=== PATIENT | female | born 1945 | race Caucasian/White ===

== ENCOUNTER 2020-05-15 14:33 | Inpatient (IN) ==
[2020-05-15] MEDS ORDERED: Dexamethasone 4 MG/ML VIAL IVP ONE (14:40)
[2020-05-15 14:59] LABS: Basophils % 0.6 %; Eosinophils % 0.7 %; Hematocrit 27.2 % (35.3-44.9); Hemoglobin 7.9 g/dL (11.5-15.4); Immature Granulocytes % 0.7 % (0-4); Lymphocytes # 1.3 K/mcL (0.6-4.6); Lymphocytes % 23.6 %; Mean Corpuscular Hemoglobin 22.5 pg (28.0-33.3); Mean Corpuscular Volume 77.5 fL (83.0-100.0); Mean Platelet Volume 10.9 fL (9.4-12.4); Monocytes # 0.4 K/mcL (0.0-1.3); Monocytes % 7.1 %; Neutrophils # 3.6 K/mcL (1.6-8.9); Platelet Count 202 K/mcL (140-400); Red Blood Count 3.51 M/mcL (3.82-4.97); Red Cell Distribution Width 20.3 % (11.5-14.5); Segmented Neutrophils % 67.3 %; White Blood Count 5.3 K/mcL (4.3-11.1)
[2020-05-15 15:07] LABS: INR 1.1; Prothrombin Time 13.1 Seconds (9.4-12.1)
[2020-05-15 15:10] LABS: Bilirubin,Urine Negative (Negative); Blood,Urine Trace-lysed (Negative); Clarity,Urine Clear (Clear); Color,Urine Yellow (Yellow); Glucose,Urine (UA) Normal (Normal); Ketones,Urine Trace mg/dL (Negative); Leukocyte Esterase,Urine Negative (Negative); Nitrite,Urine Negative (Negative); Protein,Urine Trace mg/dL (Neg-Trace); Urobilinogen,Urine Normal (Normal)
[2020-05-15 15:10] LABS: Activated Partial Thrombo Time 28.3 Seconds (26.0-36.0)
[2020-05-15 15:19] LABS: RBC,Urine 0-3 per hpf (0-3); Squamous Epithelial Cell,Urine Few per hpf (None-Few); WBC,Urine 0-3 per hpf (0-3)
[2020-05-15 15:45] LABS: Alanine Aminotransferase 10 Units/L (7-52); Albumin 3.6 g/dL (3.5-5.7); Albumin/Globulin Ratio 1.1 (1.1-2.2); Alkaline Phosphatase 68 Units/L (34-104); Aspartate Amino Transferase 26 Units/L (13-39); BUN/Creatinine Ratio 19 (6-26); Bilirubin,Direct 0.1 mg/dL (0.0-0.2); Bilirubin,Indirect 0.4 mg/dL (0.0-1.0); Bilirubin,Total 0.5 mg/dL (0.3-1.0); Blood Urea Nitrogen 14 mg/dL (8-23); Carbon Dioxide 25 mEq/L (23-29); Chloride 100 mEq/L (98-107); Globulin 3.4 g/dL (2.4-3.5); Glucose 198 mg/dL (70-105); Osmolality,Calculated 284 (280-300); Potassium 4.8 mEq/L (3.5-5.1); Sodium 134 mEq/L (136-145); Troponin I < 0.03 ng/mL (< 0.04); eGFR For African Americans > 60 (> 60); eGFR For Non-African Americans > 60 (> 60)
[2020-05-15] MEDS ORDERED: Ondansetron 4 MG/2 ML VIAL IVP PRN (19:00)
[2020-05-15] MEDS ORDERED: MOM Conc 10 ML UD.LIQ PO PRN (19:00)
[2020-05-15] MEDS ORDERED: Mag Hydrox/Al Hydrox/Simeth 30 ML UDC PO PRN (19:00)
[2020-05-15] MEDS ORDERED: Naloxone 0.4 MG/ML INJ IVP PRN (19:00)
[2020-05-15] MEDS ORDERED: Isovue-370 500 ML BOTTLE IVP ONE (19:12)
[2020-05-15] MEDS ORDERED: *HR* Dextrose 50 % in Water (Vial) 50 ML VIAL IVP PRN (19:14)
[2020-05-15] MEDS ORDERED: D5% in Water 1,000 ML IVC PRN (19:14)
[2020-05-15] MEDS ORDERED: Dextrose Gel 15 GM/37.5 ML TUBE PO PRN ×2 (19:14)
[2020-05-15] MEDS: Pregabalin 75 MG CAPSULE PO SCH (20:29)
[2020-05-15] MEDS: Mirtazapine 15 MG TABLET PO SCH (20:29)
[2020-05-15] MEDS: Azithromycin 500 MG in 0.9 % Sodium Chloride 250 ML IVPB SCH (20:31)
[2020-05-15 20:41] LABS: C-Reactive Protein 48 mg/L (Less than 10)
[2020-05-15] MEDS ORDERED: cefTRIAXone 2,000 MG in 0.9 % Sodium Chloride Mini Bag 100 ML IVPB SCH (20:51)
[2020-05-15 20:59] LABS: Ferritin 28 ng/mL (10-120)
[2020-05-15] MEDS: Insulin LISPRO 300 UNITS/3 ML VIAL SUBQ SCH (21:49)
[2020-05-15] MEDS: Budesonide/Formoterol 160/4.5 1 PUFF INH IH SCH (21:57)
[2020-05-15] MEDS: Acetaminophen 325 MG TABLET PO PRN (22:22)
[2020-05-15] MEDS: *HR* LORazepam 0.5 MG TABLET PO PRN (22:24)
[2020-05-16 06:40] LABS: Hematocrit 26.7 % (35.3-44.9); Hemoglobin 7.8 g/dL (11.5-15.4); Lymphocytes # 0.9 K/mcL (0.6-4.6); Lymphocytes % 21.8 %; Mean Corpuscular HGB Conc 29.2 g/dL (31.6-35.5); Mean Corpuscular Hemoglobin 22.6 pg (28.0-33.3); Mean Corpuscular Volume 77.4 fL (83.0-100.0); Mean Platelet Volume 10.8 fL (9.4-12.4); Monocytes # 0.1 K/mcL (0.0-1.3); Monocytes % 3.4 %; Platelet Count 174 K/mcL (140-400); Red Blood Count 3.45 M/mcL (3.82-4.97); Red Cell Distribution Width 19.8 % (11.5-14.5); Segmented Neutrophils % 73.8 %; White Blood Count 4.1 K/mcL (4.3-11.1)
[2020-05-16 07:03] LABS: BUN/Creatinine Ratio 23 (6-26); Blood Urea Nitrogen 15 mg/dL (8-23); Calcium 8.9 mg/dL (8.6-10.3); Carbon Dioxide 23 mEq/L (23-29); Chloride 99 mEq/L (98-107); Glucose 352 mg/dL (70-105); Osmolality,Calculated 293 (280-300); Potassium 4.5 mEq/L (3.5-5.1); Sodium 134 mEq/L (136-145); eGFR For African Americans > 60 (> 60); eGFR For Non-African Americans > 60 (> 60)
[2020-05-16] MEDS: Insulin LISPRO 300 UNITS/3 ML VIAL SUBQ SCH ×4 (08:00→20:08)
[2020-05-16] MEDS: Pregabalin 75 MG CAPSULE PO SCH ×2 (08:02→20:14)
[2020-05-16] MEDS: Cholecalciferol (D-3) 1,000 UNIT (25MCG) TABLET PO SCH (08:02)
[2020-05-16] MEDS: tiZANidine 4 MG TABLET PO SCH (08:02)
[2020-05-16] MEDS: *HR* Glimepiride 2 MG TABLET PO SCH (08:02)
[2020-05-16] MEDS: Budesonide/Formoterol 160/4.5 1 PUFF INH IH SCH ×2 (08:24→20:28)
[2020-05-16] MEDS ORDERED: Dexamethasone 4 MG/ML VIAL IVP SCH (09:00)
[2020-05-16 09:25] LABS: % Iron Saturation 5 % (15-50); Iron 25 mcg/dL (50-170); Transferrin 326 mg/dL (203-362)
[2020-05-16 12:24] LABS: Estimated Average Glucose 237 mg/dl; Hemoglobin A1C 9.9 %
[2020-05-16] MEDS ORDERED: Insulin LISPRO 300 UNITS/3 ML VIAL SUBQ ONE ×2 (13:24→15:45)
[2020-05-16] MEDS: *HR* LORazepam 0.5 MG TABLET PO PRN ×2 (14:12→22:33)
[2020-05-16] MEDS: *HR* Acetaminophen w/Cod 300-30 mg 1 TAB TABLET PO PRN ×2 (14:12→22:32)
[2020-05-16] MEDS ORDERED: Insulin LISPRO 300 UNITS/3 ML VIAL SUBQ STA (18:30)
[2020-05-16] MEDS: Azithromycin 500 MG in 0.9 % Sodium Chloride 250 ML IVPB SCH (19:46)
[2020-05-16] MEDS: Mirtazapine 15 MG TABLET PO SCH (20:14)
[2020-05-16] MEDS ORDERED: Insulin DETEMIR 100 UNIT/ML per UNIT SUBQ SCH (21:00)
[2020-05-16] MEDS ORDERED: Insulin DETEMIR 100 UNIT/ML X5UNITS SUBQ SCH (21:00)
[2020-05-16] MEDS: cefTRIAXone 2,000 MG in 0.9 % Sodium Chloride Mini Bag 100 ML IVPB SCH (22:37)
[2020-05-17 07:28] LABS: BUN/Creatinine Ratio 28 (6-26); Blood Urea Nitrogen 17 mg/dL (8-23); Calcium 8.5 mg/dL (8.6-10.3); Carbon Dioxide 25 mEq/L (23-29); Chloride 101 mEq/L (98-107); Glucose 332 mg/dL (70-105); Osmolality,Calculated 293 (280-300); Potassium 4.7 mEq/L (3.5-5.1); Sodium 134 mEq/L (136-145); eGFR For African Americans > 60 (> 60); eGFR For Non-African Americans > 60 (> 60)
[2020-05-17 07:33] LABS: Basophils % 0.1 %; Hematocrit 25.2 % (35.3-44.9); Hemoglobin 7.4 g/dL (11.5-15.4); Immature Granulocytes % 0.8 % (0-4); Lymphocytes # 0.8 K/mcL (0.6-4.6); Lymphocytes % 7.8 %; Mean Corpuscular HGB Conc 29.4 g/dL (31.6-35.5); Mean Corpuscular Hemoglobin 22.6 pg (28.0-33.3); Mean Corpuscular Volume 76.8 fL (83.0-100.0); Mean Platelet Volume 11.2 fL (9.4-12.4); Monocytes # 0.6 K/mcL (0.0-1.3); Neutrophils # 8.3 K/mcL (1.6-8.9); Nucleated Red Blood Cells 0.2 /100 WBC (0); Platelet Count 131 K/mcL (140-400); Red Blood Count 3.28 M/mcL (3.82-4.97); Segmented Neutrophils % 85.3 %; White Blood Count 9.7 K/mcL (4.3-11.1)
[2020-05-17] MEDS: Budesonide/Formoterol 160/4.5 1 PUFF INH IH SCH ×2 (07:45→20:48)
[2020-05-17] MEDS ORDERED: Dexamethasone Sodium Phos/PF 10 MG/ML VIAL IVP SCH (09:00)
[2020-05-17] MEDS ORDERED: Insulin DETEMIR 100 UNIT/ML X5UNITS SUBQ SCH (09:00)
[2020-05-17 09:14] LABS: Ferritin 34 ng/mL (10-120)
[2020-05-17] MEDS: Insulin LISPRO 300 UNITS/3 ML VIAL SUBQ SCH ×5 (09:19→20:21)
[2020-05-17] MEDS: Pregabalin 75 MG CAPSULE PO SCH ×2 (09:21→20:23)
[2020-05-17] MEDS: Cholecalciferol (D-3) 1,000 UNIT (25MCG) TABLET PO SCH (09:21)
[2020-05-17] MEDS: *HR* Glimepiride 2 MG TABLET PO SCH (09:21)
[2020-05-17] MEDS: tiZANidine 4 MG TABLET PO SCH (09:21)
[2020-05-17] MEDS: Dexamethasone Sodium Phos/PF 10 MG/ML VIAL IVP SCH (09:22)
[2020-05-17] MEDS: *HR* Acetaminophen w/Cod 300-30 mg 1 TAB TABLET PO PRN ×2 (10:05→20:23)
[2020-05-17] MEDS: *HR* LORazepam 0.5 MG TABLET PO PRN ×2 (10:05→20:23)
[2020-05-17 10:10] LABS: C-Reactive Protein 34 mg/L (Less than 10)
[2020-05-17] MEDS ORDERED: Insulin LISPRO 300 UNITS/3 ML VIAL SUBQ STA (11:40)
[2020-05-17] MEDS: Insulin DETEMIR 100 UNIT/ML X5UNITS SUBQ SCH (20:21)
[2020-05-17] MEDS: Mirtazapine 15 MG TABLET PO SCH (20:24)
[2020-05-17] MEDS: Azithromycin 500 MG in 0.9 % Sodium Chloride 250 ML IVPB SCH (21:38)
[2020-05-17] MEDS: cefTRIAXone 2,000 MG in 0.9 % Sodium Chloride Mini Bag 100 ML IVPB SCH (22:44)
[2020-05-18 06:50] LABS: Hematocrit 24.9 % (35.3-44.9); Hemoglobin 7.3 g/dL (11.5-15.4); Immature Granulocytes % 2.8 % (0-4); Lymphocytes # 0.7 K/mcL (0.6-4.6); Lymphocytes % 7.2 %; Mean Corpuscular HGB Conc 29.3 g/dL (31.6-35.5); Mean Corpuscular Hemoglobin 22.4 pg (28.0-33.3); Mean Corpuscular Volume 76.4 fL (83.0-100.0); Mean Platelet Volume 10.8 fL (9.4-12.4); Monocytes # 0.5 K/mcL (0.0-1.3); Monocytes % 4.8 %; Neutrophils # 8.4 K/mcL (1.6-8.9); Nucleated Red Blood Cells 0.2 /100 WBC (0); Platelet Count 209 K/mcL (140-400); Red Blood Count 3.26 M/mcL (3.82-4.97); Red Cell Distribution Width 20.2 % (11.5-14.5); Segmented Neutrophils % 85.2 %; White Blood Count 9.9 K/mcL (4.3-11.1)
[2020-05-18 08:01] LABS: BUN/Creatinine Ratio 29 (6-26); Blood Urea Nitrogen 18 mg/dL (8-23); Calcium 8.3 mg/dL (8.6-10.3); Carbon Dioxide 24 mEq/L (23-29); Chloride 102 mEq/L (98-107); Glucose 297 mg/dL (70-105); Osmolality,Calculated 291 (280-300); Potassium 4.4 mEq/L (3.5-5.1); Sodium 134 mEq/L (136-145); eGFR For African Americans > 60 (> 60); eGFR For Non-African Americans > 60 (> 60)
[2020-05-18] MEDS: Cholecalciferol (D-3) 1,000 UNIT (25MCG) TABLET PO SCH (08:41)
[2020-05-18] MEDS: *HR* Glimepiride 2 MG TABLET PO SCH (08:42)
[2020-05-18] MEDS: Dexamethasone Sodium Phos/PF 10 MG/ML VIAL IVP SCH (08:42)
[2020-05-18] MEDS: Pregabalin 75 MG CAPSULE PO SCH ×2 (08:42→20:13)
[2020-05-18] MEDS: Acetaminophen 325 MG TABLET PO PRN (08:42)
[2020-05-18] MEDS: tiZANidine 4 MG TABLET PO SCH (08:42)
[2020-05-18] MEDS: *HR* LORazepam 0.5 MG TABLET PO PRN ×2 (08:42→18:30)
[2020-05-18] MEDS: Budesonide/Formoterol 160/4.5 1 PUFF INH IH SCH ×2 (08:42→20:18)
[2020-05-18] MEDS: Insulin DETEMIR 100 UNIT/ML X5UNITS SUBQ SCH ×2 (08:43→20:12)
[2020-05-18] MEDS: Insulin LISPRO 300 UNITS/3 ML VIAL SUBQ SCH ×7 (08:48→20:10)
[2020-05-18] MEDS: *HR* Enoxaparin 40 MG/0.4 ML SYRINGE SQ SCH (14:36)
[2020-05-18] MEDS ORDERED: 0.9 % Sodium Chloride 250 ML IVC SCH (14:45)
[2020-05-18] MEDS: Azithromycin 500 MG in 0.9 % Sodium Chloride 250 ML IVPB SCH (20:09)
[2020-05-18] MEDS: Mirtazapine 15 MG TABLET PO SCH (20:13)
[2020-05-18] MEDS: cefTRIAXone 2,000 MG in 0.9 % Sodium Chloride Mini Bag 100 ML IVPB SCH (21:15)
[2020-05-18] MEDS: *HR* Acetaminophen w/Cod 300-30 mg 1 TAB TABLET PO PRN (21:16)
[2020-05-19] MEDS: *HR* Enoxaparin 40 MG/0.4 ML SYRINGE SQ SCH (06:21)
[2020-05-19 06:30] LABS: Basophils % 0.1 %; Hematocrit 27.2 % (35.3-44.9); Hemoglobin 8.1 g/dL (11.5-15.4); Immature Granulocytes % 5.3 % (0-4); Lymphocytes # 0.9 K/mcL (0.6-4.6); Lymphocytes % 10.5 %; Mean Corpuscular HGB Conc 29.8 g/dL (31.6-35.5); Mean Corpuscular Hemoglobin 23.3 pg (28.0-33.3); Mean Corpuscular Volume 78.2 fL (83.0-100.0); Mean Platelet Volume 10.7 fL (9.4-12.4); Monocytes # 0.6 K/mcL (0.0-1.3); Monocytes % 6.4 %; Neutrophils # 6.9 K/mcL (1.6-8.9); Nucleated Red Blood Cells 0.5 /100 WBC (0); Platelet Count 204 K/mcL (140-400); Red Blood Count 3.48 M/mcL (3.82-4.97); Red Cell Distribution Width 20.9 % (11.5-14.5); Segmented Neutrophils % 77.7 %; White Blood Count 8.9 K/mcL (4.3-11.1)
[2020-05-19] MEDS: *HR* LORazepam 0.5 MG TABLET PO PRN (06:38)
[2020-05-19] MEDS: *HR* Acetaminophen w/Cod 300-30 mg 1 TAB TABLET PO PRN (06:38)
[2020-05-19] MEDS: Budesonide/Formoterol 160/4.5 1 PUFF INH IH SCH (09:10)
[2020-05-19] MEDS: Insulin LISPRO 300 UNITS/3 ML VIAL SUBQ SCH ×6 (09:53→17:04)
[2020-05-19] MEDS: *HR* Glimepiride 2 MG TABLET PO SCH (09:54)
[2020-05-19] MEDS: Cholecalciferol (D-3) 1,000 UNIT (25MCG) TABLET PO SCH (09:54)
[2020-05-19] MEDS: tiZANidine 4 MG TABLET PO SCH (09:54)
[2020-05-19] MEDS: Insulin DETEMIR 100 UNIT/ML X5UNITS SUBQ SCH (09:54)
[2020-05-19] MEDS: Dexamethasone Sodium Phos/PF 10 MG/ML VIAL IVP SCH (10:02)
[2020-05-19] MEDS: Pregabalin 75 MG CAPSULE PO SCH (10:02)
[2020-05-19 16:37] VITALS: BP 170/80
== END 2020-05-19 18:45 | disposition other institution (70) | DRG 177 ==
LOC: EMEROOPIK 14:33 → INPPIK 14:33
PROVIDERS: ADMIT Family Medicine; ATTEND Family Medicine

== ENCOUNTER 2020-05-18 16:13 | Inpatient (IN) ==
[2020-05-19] MEDS ORDERED: Azithromycin 500 MG VIAL IVPB SCH (19:00)
[2020-05-19] MEDS ORDERED: CefTRIAXone 2,000 MG VIAL IVPB SCH (19:00)
[2020-05-19] MEDS ORDERED: 0.9 % Sodium Chloride 250 ML ONE (20:00)
[2020-05-19] MEDS: Azithromycin 500 MG in 0.9 % Sodium Chloride 250 ML IVPB SCH (20:13)
[2020-05-19] MEDS: Pregabalin 75 MG CAPSULE PO SCH (20:14)
[2020-05-19] MEDS: *HR* Metformin 500 MG TABLET PO SCH (20:14)
[2020-05-19] MEDS: Mirtazapine 15 MG TABLET PO SCH (20:14)
[2020-05-19] MEDS: *HR* LORazepam 1 MG TABLET PO SCH (20:14)
[2020-05-19] MEDS: cefTRIAXone 2,000 MG in Water for inj. (sterile) 20 ML IVP SCH (20:19)
[2020-05-19] MEDS ORDERED: Dextrose Gel 15 GM/37.5 ML TUBE PO PRN ×2 (20:41)
[2020-05-19] MEDS ORDERED: *HR* Dextrose 50 % in Water (Vial) 50 ML VIAL IVP PRN (20:41)
[2020-05-19] MEDS ORDERED: D5% in Water 1,000 ML IVC PRN (20:41)
[2020-05-19] MEDS: *HR* Acetaminophen w/Cod 300-30 mg 1 TAB TABLET PO PRN (20:47)
[2020-05-19] MEDS: Insulin LISPRO 300 UNITS/3 ML VIAL SUBQ SCH (20:49)
[2020-05-19] MEDS ORDERED: Insulin DETEMIR 100 UNIT/ML per UNIT SUBQ ONE (21:00)
[2020-05-19] MEDS: Budesonide/Formoterol 160/4.5 1 PUFF INH IH SCH (22:57)
[2020-05-20] MEDS: *HR* Enoxaparin 40 MG/0.4 ML SYRINGE SQ SCH (05:57)
[2020-05-20 06:58] LABS: Basophils % 0.3 %; Hematocrit 28.4 % (35.3-44.9); Hemoglobin 8.5 g/dL (11.5-15.4); Lymphocytes % 12.7 %; Mean Corpuscular HGB Conc 29.9 g/dL (31.6-35.5); Mean Corpuscular Hemoglobin 23.5 pg (28.0-33.3); Mean Corpuscular Volume 78.7 fL (83.0-100.0); Mean Platelet Volume 10.3 fL (9.4-12.4); Monocytes # 0.5 K/mcL (0.0-1.3); Monocytes % 6.8 %; Neutrophils # 5.8 K/mcL (1.6-8.9); Nucleated Red Blood Cells 0.8 /100 WBC (0); Platelet Count 179 K/mcL (140-400); Red Blood Count 3.61 M/mcL (3.82-4.97); Red Cell Distribution Width 21.2 % (11.5-14.5); Segmented Neutrophils % 74.2 %; White Blood Count 7.8 K/mcL (4.3-11.1)
[2020-05-20 07:16] LABS: BUN/Creatinine Ratio 38 (6-26); Blood Urea Nitrogen 20 mg/dL (8-23); Calcium 8.3 mg/dL (8.6-10.3); Carbon Dioxide 25 mEq/L (23-29); Chloride 103 mEq/L (98-107); Glucose 196 mg/dL (70-105); Osmolality,Calculated 292 (280-300); Potassium 4.2 mEq/L (3.5-5.1); Sodium 137 mEq/L (136-145); eGFR For African Americans > 60 (> 60); eGFR For Non-African Americans > 60 (> 60)
[2020-05-20] MEDS: Budesonide/Formoterol 160/4.5 1 PUFF INH IH SCH ×2 (08:33→23:06)
[2020-05-20] MEDS: Cholecalciferol (D-3) 1,000 UNIT (25MCG) TABLET PO SCH (08:45)
[2020-05-20] MEDS: *HR* LORazepam 1 MG TABLET PO SCH ×3 (08:45→20:23)
[2020-05-20] MEDS: *HR* Metformin 500 MG TABLET PO SCH ×2 (08:46→17:36)
[2020-05-20] MEDS: Pregabalin 75 MG CAPSULE PO SCH ×2 (08:47→20:23)
[2020-05-20] MEDS: *HR* Glimepiride 2 MG TABLET PO SCH (08:47)
[2020-05-20] MEDS: tiZANidine 4 MG TABLET PO SCH (08:47)
[2020-05-20] MEDS: Insulin DETEMIR 100 UNIT/ML X5UNITS SUBQ SCH ×2 (08:48→20:30)
[2020-05-20] MEDS ORDERED: *HR* Glimepiride 4 MG TABLET PO SCH (09:00)
[2020-05-20] MEDS: Insulin LISPRO 300 UNITS/3 ML VIAL SUBQ SCH ×4 (09:16→20:29)
[2020-05-20] MEDS: Azithromycin 500 MG in 0.9 % Sodium Chloride 250 ML IVPB SCH (17:37)
[2020-05-20] MEDS: *HR* Acetaminophen w/Cod 300-30 mg 1 TAB TABLET PO PRN (20:23)
[2020-05-20] MEDS: Mirtazapine 15 MG TABLET PO SCH (20:23)
[2020-05-20] MEDS: cefTRIAXone 2,000 MG in Water for inj. (sterile) 20 ML IVP SCH (20:24)
[2020-05-21] MEDS: *HR* Enoxaparin 40 MG/0.4 ML SYRINGE SQ SCH (05:33)
[2020-05-21] MEDS: Cholecalciferol (D-3) 1,000 UNIT (25MCG) TABLET PO SCH (07:47)
[2020-05-21] MEDS: *HR* LORazepam 1 MG TABLET PO SCH ×3 (07:48→21:35)
[2020-05-21] MEDS: tiZANidine 4 MG TABLET PO SCH (07:48)
[2020-05-21] MEDS: Pregabalin 75 MG CAPSULE PO SCH ×2 (07:48→21:35)
[2020-05-21] MEDS: *HR* Glimepiride 2 MG TABLET PO SCH (07:48)
[2020-05-21] MEDS: Insulin LISPRO 300 UNITS/3 ML VIAL SUBQ SCH ×4 (07:49→21:36)
[2020-05-21] MEDS: Insulin DETEMIR 100 UNIT/ML X5UNITS SUBQ SCH ×2 (07:49→21:36)
[2020-05-21] MEDS: *HR* Metformin 500 MG TABLET PO SCH ×2 (07:49→16:07)
[2020-05-21] MEDS: Budesonide/Formoterol 160/4.5 1 PUFF INH IH SCH ×2 (09:07→21:26)
[2020-05-21] MEDS: dexAMETHasone 4 MG TABLET PO SCH (14:17)
[2020-05-21] MEDS: *HR* Acetaminophen w/Cod 300-30 mg 1 TAB TABLET PO PRN (18:56)
[2020-05-21] MEDS: cefTRIAXone 2,000 MG in Water for inj. (sterile) 20 ML IVP SCH (21:34)
[2020-05-21] MEDS: Mirtazapine 15 MG TABLET PO SCH (21:35)
[2020-05-22] MEDS: *HR* Enoxaparin 40 MG/0.4 ML SYRINGE SQ SCH (05:48)
[2020-05-22] MEDS: *HR* LORazepam 1 MG TABLET PO SCH ×3 (08:47→21:11)
[2020-05-22] MEDS: dexAMETHasone 4 MG TABLET PO SCH (08:47)
[2020-05-22] MEDS: *HR* Metformin 500 MG TABLET PO SCH ×2 (08:47→16:47)
[2020-05-22] MEDS: Cholecalciferol (D-3) 1,000 UNIT (25MCG) TABLET PO SCH (08:47)
[2020-05-22] MEDS: tiZANidine 4 MG TABLET PO SCH (08:47)
[2020-05-22] MEDS: Pregabalin 75 MG CAPSULE PO SCH ×2 (08:48→21:11)
[2020-05-22] MEDS: Insulin LISPRO 300 UNITS/3 ML VIAL SUBQ SCH ×4 (08:48→21:12)
[2020-05-22] MEDS: Insulin DETEMIR 100 UNIT/ML X5UNITS SUBQ SCH ×2 (08:49→21:12)
[2020-05-22] MEDS: Budesonide/Formoterol 160/4.5 1 PUFF INH IH SCH ×2 (10:35→22:20)
[2020-05-22] MEDS: Mirtazapine 15 MG TABLET PO SCH (21:11)
[2020-05-22] MEDS: cefTRIAXone 2,000 MG in Water for inj. (sterile) 20 ML IVP SCH (21:12)
[2020-05-22] MEDS: *HR* Acetaminophen w/Cod 300-30 mg 1 TAB TABLET PO PRN (21:52)
[2020-05-23] MEDS: *HR* Enoxaparin 40 MG/0.4 ML SYRINGE SQ SCH (05:52)
[2020-05-23] MEDS: *HR* Metformin 500 MG TABLET PO SCH ×2 (09:41→17:35)
[2020-05-23] MEDS: Insulin LISPRO 300 UNITS/3 ML VIAL SUBQ SCH ×4 (09:41→20:14)
[2020-05-23] MEDS: Cholecalciferol (D-3) 1,000 UNIT (25MCG) TABLET PO SCH (09:42)
[2020-05-23] MEDS: Pregabalin 75 MG CAPSULE PO SCH ×2 (09:42→20:13)
[2020-05-23] MEDS: dexAMETHasone 4 MG TABLET PO SCH (09:42)
[2020-05-23] MEDS: Insulin DETEMIR 100 UNIT/ML X5UNITS SUBQ SCH ×2 (09:42→20:14)
[2020-05-23] MEDS: tiZANidine 4 MG TABLET PO SCH (09:42)
[2020-05-23] MEDS: *HR* LORazepam 1 MG TABLET PO SCH ×3 (09:42→20:13)
[2020-05-23] MEDS: Budesonide/Formoterol 160/4.5 1 PUFF INH IH SCH ×2 (10:40→21:02)
[2020-05-23] MEDS: Acetaminophen 325 MG TABLET PO PRN (11:30)
[2020-05-23] MEDS: *HR* Acetaminophen w/Cod 300-30 mg 1 TAB TABLET PO PRN (20:13)
[2020-05-23] MEDS: Mirtazapine 15 MG TABLET PO SCH (20:13)
[2020-05-24] MEDS: *HR* Enoxaparin 40 MG/0.4 ML SYRINGE SQ SCH (06:14)
[2020-05-24] MEDS: Insulin LISPRO 300 UNITS/3 ML VIAL SUBQ SCH ×4 (08:57→19:50)
[2020-05-24] MEDS: dexAMETHasone 4 MG TABLET PO SCH (09:16)
[2020-05-24] MEDS: Pregabalin 75 MG CAPSULE PO SCH ×2 (09:16→19:43)
[2020-05-24] MEDS: *HR* Metformin 500 MG TABLET PO SCH ×2 (09:16→17:23)
[2020-05-24] MEDS: *HR* LORazepam 1 MG TABLET PO SCH ×3 (09:16→19:43)
[2020-05-24] MEDS: tiZANidine 4 MG TABLET PO SCH (09:16)
[2020-05-24] MEDS: Cholecalciferol (D-3) 1,000 UNIT (25MCG) TABLET PO SCH (09:16)
[2020-05-24] MEDS: Insulin DETEMIR 100 UNIT/ML X5UNITS SUBQ SCH ×2 (09:17→19:51)
[2020-05-24] MEDS: Budesonide/Formoterol 160/4.5 1 PUFF INH IH SCH ×2 (09:40→22:31)
[2020-05-24] MEDS: *HR* Acetaminophen w/Cod 300-30 mg 1 TAB TABLET PO PRN (14:27)
[2020-05-24] MEDS: Mirtazapine 15 MG TABLET PO SCH (19:43)
[2020-05-25] MEDS: *HR* Enoxaparin 40 MG/0.4 ML SYRINGE SQ SCH (05:28)
[2020-05-25] MEDS: *HR* Metformin 500 MG TABLET PO SCH ×2 (07:51→15:45)
[2020-05-25] MEDS: Cholecalciferol (D-3) 1,000 UNIT (25MCG) TABLET PO SCH (07:52)
[2020-05-25] MEDS: tiZANidine 4 MG TABLET PO SCH (07:52)
[2020-05-25] MEDS: Insulin LISPRO 300 UNITS/3 ML VIAL SUBQ SCH ×4 (07:52→19:52)
[2020-05-25] MEDS: Pregabalin 75 MG CAPSULE PO SCH ×2 (07:52→19:44)
[2020-05-25] MEDS: *HR* LORazepam 1 MG TABLET PO SCH ×3 (07:52→19:44)
[2020-05-25] MEDS: Insulin DETEMIR 100 UNIT/ML X5UNITS SUBQ SCH ×2 (08:41→19:45)
[2020-05-25] MEDS: Budesonide/Formoterol 160/4.5 1 PUFF INH IH SCH ×2 (09:06→21:46)
[2020-05-25] MEDS ORDERED: Ondansetron ODT 4 MG TAB.RAPDIS SL PRN (10:40)
[2020-05-25] MEDS: Acetaminophen 325 MG TABLET PO PRN (12:46)
[2020-05-25] MEDS: Mirtazapine 15 MG TABLET PO SCH (19:44)
[2020-05-25] MEDS: *HR* Acetaminophen w/Cod 300-30 mg 1 TAB TABLET PO PRN (22:24)
[2020-05-26] MEDS: *HR* Enoxaparin 40 MG/0.4 ML SYRINGE SQ SCH (05:55)
[2020-05-26 06:23] LABS: Basophils % 0.1 %; Eosinophils # 0.1 K/mcL (0.0-0.6); Eosinophils % 1.3 %; Hematocrit 37.6 % (35.3-44.9); Hemoglobin 11.2 g/dL (11.5-15.4); Immature Granulocytes % 0.3 % (0-4); Lymphocytes # 2.3 K/mcL (0.6-4.6); Lymphocytes % 33.6 %; Mean Corpuscular HGB Conc 29.8 g/dL (31.6-35.5); Mean Corpuscular Hemoglobin 23.9 pg (28.0-33.3); Mean Corpuscular Volume 80.2 fL (83.0-100.0); Mean Platelet Volume 10.6 fL (9.4-12.4); Monocytes # 0.6 K/mcL (0.0-1.3); Neutrophils # 3.9 K/mcL (1.6-8.9); Platelet Count 200 K/mcL (140-400); Red Blood Count 4.69 M/mcL (3.82-4.97); Red Cell Distribution Width 22.8 % (11.5-14.5); Segmented Neutrophils % 56.7 %; White Blood Count 6.9 K/mcL (4.3-11.1)
[2020-05-26 06:44] LABS: BUN/Creatinine Ratio 33 (6-26); Blood Urea Nitrogen 20 mg/dL (8-23); Calcium 8.9 mg/dL (8.6-10.3); Chloride 100 mEq/L (98-107); Sodium 136 mEq/L (136-145); eGFR For African Americans > 60 (> 60); eGFR For Non-African Americans > 60 (> 60)
[2020-05-26 06:47] LABS: Carbon Dioxide 24 mEq/L (23-29); Glucose 83 mg/dL (70-105); Osmolality,Calculated 284 (280-300)
[2020-05-26] MEDS: Insulin LISPRO 300 UNITS/3 ML VIAL SUBQ SCH ×4 (09:15→20:34)
[2020-05-26] MEDS: Cholecalciferol (D-3) 1,000 UNIT (25MCG) TABLET PO SCH (09:26)
[2020-05-26] MEDS: *HR* Metformin 500 MG TABLET PO SCH (09:27)
[2020-05-26] MEDS: *HR* LORazepam 1 MG TABLET PO SCH ×3 (09:27→20:37)
[2020-05-26] MEDS: Pregabalin 75 MG CAPSULE PO SCH ×2 (09:27→20:37)
[2020-05-26] MEDS: tiZANidine 4 MG TABLET PO SCH (09:27)
[2020-05-26] MEDS: Insulin DETEMIR 100 UNIT/ML X5UNITS SUBQ SCH ×2 (09:28→20:39)
[2020-05-26] MEDS: Budesonide/Formoterol 160/4.5 1 PUFF INH IH SCH ×2 (09:29→21:54)
[2020-05-26] MEDS ORDERED: 0.9 % Sodium Chloride 250 ML IVC ONE (11:23)
[2020-05-26] MEDS ORDERED: Isovue-370 500 ML BOTTLE IVP ONE (11:25)
[2020-05-26] MEDS: Albuterol 2.5 MG/3 ML NEBULIZER IH PRN (11:31)
[2020-05-26] MEDS: Piperacillin/Tazobactam 3.375 GM in 0.9 % Sodium Chloride Mini Bag 100 ML IVPB SCH (15:21)
[2020-05-26 17:57] LABS: C-Reactive Protein 19 mg/L (Less than 10)
[2020-05-26 18:13] LABS: Ferritin 45 ng/mL (10-120)
[2020-05-26] MEDS: *HR* Acetaminophen w/Cod 300-30 mg 1 TAB TABLET PO PRN (20:37)
[2020-05-26] MEDS: Mirtazapine 15 MG TABLET PO SCH (20:39)
[2020-05-27] MEDS: Dexamethasone Sodium Phos/PF 10 MG/ML VIAL IVP SCH ×2 (00:52→08:16)
[2020-05-27] MEDS: Piperacillin/Tazobactam 3.375 GM in 0.9 % Sodium Chloride Mini Bag 100 ML IVPB SCH ×4 (00:53→23:11)
[2020-05-27] MEDS: *HR* Enoxaparin 40 MG/0.4 ML SYRINGE SQ SCH (05:57)
[2020-05-27 06:04] LABS: Hematocrit 34.6 % (35.3-44.9); Hemoglobin 10.2 g/dL (11.5-15.4); Mean Corpuscular HGB Conc 29.5 g/dL (31.6-35.5); Mean Corpuscular Hemoglobin 23.8 pg (28.0-33.3); Mean Corpuscular Volume 80.7 fL (83.0-100.0); Mean Platelet Volume 11.1 fL (9.4-12.4); Platelet Count 147 K/mcL (140-400); Red Blood Count 4.29 M/mcL (3.82-4.97); Red Cell Distribution Width 22.9 % (11.5-14.5); White Blood Count 5.8 K/mcL (4.3-11.1)
[2020-05-27 06:23] LABS: Alanine Aminotransferase 15 Units/L (7-52); Albumin 3.2 g/dL (3.5-5.7); Alkaline Phosphatase 63 Units/L (34-104); Aspartate Amino Transferase 22 Units/L (13-39); BUN/Creatinine Ratio 25 (6-26); Bilirubin,Total 0.6 mg/dL (0.3-1.0); Blood Urea Nitrogen 15 mg/dL (8-23); Calcium 8.6 mg/dL (8.6-10.3); Carbon Dioxide 26 mEq/L (23-29); Chloride 101 mEq/L (98-107); Globulin 3.3 g/dL (2.4-3.5); Glucose 167 mg/dL (70-105); Osmolality,Calculated 285 (280-300); Potassium 4.5 mEq/L (3.5-5.1); Sodium 135 mEq/L (136-145); Total Protein 6.5 g/dL (6.4-8.9); eGFR For African Americans > 60 (> 60); eGFR For Non-African Americans > 60 (> 60)
[2020-05-27] MEDS: Cholecalciferol (D-3) 1,000 UNIT (25MCG) TABLET PO SCH (08:15)
[2020-05-27] MEDS: Pregabalin 75 MG CAPSULE PO SCH ×2 (08:16→20:39)
[2020-05-27] MEDS: Insulin LISPRO 300 UNITS/3 ML VIAL SUBQ SCH ×4 (08:18→20:39)
[2020-05-27] MEDS: Insulin DETEMIR 100 UNIT/ML X5UNITS SUBQ SCH ×2 (08:20→20:43)
[2020-05-27] MEDS: tiZANidine 4 MG TABLET PO SCH (08:30)
[2020-05-27] MEDS: Budesonide/Formoterol 160/4.5 1 PUFF INH IH SCH ×2 (10:26→21:38)
[2020-05-27] MEDS: *HR* LORazepam 1 MG TABLET PO PRN ×2 (12:41→19:54)
[2020-05-27] MEDS: *HR* Acetaminophen w/Cod 300-30 mg 1 TAB TABLET PO PRN (19:53)
[2020-05-27] MEDS: Mirtazapine 15 MG TABLET PO SCH (20:38)
[2020-05-27] MEDS: Melatonin 3 MG TABLET PO PRN (23:55)
[2020-05-28] MEDS: *HR* Enoxaparin 40 MG/0.4 ML SYRINGE SQ SCH (05:25)
[2020-05-28] MEDS: Insulin LISPRO 300 UNITS/3 ML VIAL SUBQ SCH ×4 (08:04→21:21)
[2020-05-28] MEDS: tiZANidine 4 MG TABLET PO SCH (08:05)
[2020-05-28] MEDS: Pregabalin 75 MG CAPSULE PO SCH ×2 (08:05→21:26)
[2020-05-28] MEDS: Dexamethasone Sodium Phos/PF 10 MG/ML VIAL IVP SCH (08:05)
[2020-05-28] MEDS: Cholecalciferol (D-3) 1,000 UNIT (25MCG) TABLET PO SCH (08:05)
[2020-05-28] MEDS: Insulin DETEMIR 100 UNIT/ML X5UNITS SUBQ SCH ×2 (08:05→21:24)
[2020-05-28] MEDS: Piperacillin/Tazobactam 3.375 GM in 0.9 % Sodium Chloride Mini Bag 100 ML IVPB SCH ×2 (08:06→15:59)
[2020-05-28] MEDS: Budesonide/Formoterol 160/4.5 1 PUFF INH IH SCH ×2 (10:02→21:34)
[2020-05-28 11:38] LABS: Hematocrit 30.1 % (35.3-44.9); Immature Granulocytes % 0.2 % (0-4); Lymphocytes # 0.5 K/mcL (0.6-4.6); Lymphocytes % 11.3 %; Mean Corpuscular HGB Conc 29.9 g/dL (31.6-35.5); Mean Corpuscular Hemoglobin 24.3 pg (28.0-33.3); Mean Corpuscular Volume 81.1 fL (83.0-100.0); Mean Platelet Volume 11.9 fL (9.4-12.4); Monocytes # 0.3 K/mcL (0.0-1.3); Monocytes % 6.3 %; Neutrophils # 3.9 K/mcL (1.6-8.9); Platelet Count 133 K/mcL (140-400); Red Blood Count 3.71 M/mcL (3.82-4.97); Segmented Neutrophils % 82.2 %; White Blood Count 4.8 K/mcL (4.3-11.1)
[2020-05-28 11:51] LABS: BUN/Creatinine Ratio 28 (6-26); Blood Urea Nitrogen 18 mg/dL (8-23); Calcium 8.4 mg/dL (8.6-10.3); Carbon Dioxide 26 mEq/L (23-29); Chloride 102 mEq/L (98-107); Glucose 318 mg/dL (70-105); Osmolality,Calculated 296 (280-300); Potassium 4.6 mEq/L (3.5-5.1); Sodium 136 mEq/L (136-145); eGFR For African Americans > 60 (> 60); eGFR For Non-African Americans > 60 (> 60)
[2020-05-28] MEDS: *HR* LORazepam 1 MG TABLET PO PRN (15:59)
[2020-05-28] MEDS: *HR* Acetaminophen w/Cod 300-30 mg 1 TAB TABLET PO PRN (16:03)
[2020-05-28 19:57] LABS: C-Reactive Protein 20 mg/L (Less than 10)
[2020-05-28] MEDS: Mirtazapine 15 MG TABLET PO SCH (21:26)
[2020-05-29] MEDS: Piperacillin/Tazobactam 3.375 GM in 0.9 % Sodium Chloride Mini Bag 100 ML IVPB SCH ×3 (00:01→18:12)
[2020-05-29] MEDS: Melatonin 3 MG TABLET PO PRN ×2 (00:02→22:17)
[2020-05-29] MEDS: *HR* Acetaminophen w/Cod 300-30 mg 1 TAB TABLET PO PRN ×3 (00:03→23:23)
[2020-05-29] MEDS: *HR* Enoxaparin 40 MG/0.4 ML SYRINGE SQ SCH (06:09)
[2020-05-29] MEDS: Cholecalciferol (D-3) 1,000 UNIT (25MCG) TABLET PO SCH (08:49)
[2020-05-29] MEDS: Pregabalin 75 MG CAPSULE PO SCH ×2 (08:49→20:42)
[2020-05-29] MEDS: tiZANidine 4 MG TABLET PO SCH (08:49)
[2020-05-29] MEDS: Dexamethasone Sodium Phos/PF 10 MG/ML VIAL IVP SCH (08:49)
[2020-05-29] MEDS: Insulin DETEMIR 100 UNIT/ML X5UNITS SUBQ SCH ×2 (09:08→20:42)
[2020-05-29] MEDS: Insulin LISPRO 300 UNITS/3 ML VIAL SUBQ SCH ×4 (09:08→20:43)
[2020-05-29] MEDS: Budesonide/Formoterol 160/4.5 1 PUFF INH IH SCH ×2 (09:26→22:12)
[2020-05-29] MEDS: *HR* LORazepam 1 MG TABLET PO PRN ×2 (15:05→23:23)
[2020-05-29] MEDS: Mirtazapine 15 MG TABLET PO SCH (20:42)
[2020-05-30] MEDS: Piperacillin/Tazobactam 3.375 GM in 0.9 % Sodium Chloride Mini Bag 100 ML IVPB SCH ×3 (01:26→17:39)
[2020-05-30 05:25] LABS: Hematocrit 31.1 % (35.3-44.9); Hemoglobin 9.3 g/dL (11.5-15.4); Immature Granulocytes % 0.2 % (0-4); Lymphocytes # 1.3 K/mcL (0.6-4.6); Lymphocytes % 29.3 %; Mean Corpuscular HGB Conc 29.9 g/dL (31.6-35.5); Mean Corpuscular Hemoglobin 24.3 pg (28.0-33.3); Mean Corpuscular Volume 81.4 fL (83.0-100.0); Mean Platelet Volume 11.5 fL (9.4-12.4); Monocytes # 0.6 K/mcL (0.0-1.3); Monocytes % 13.1 %; Neutrophils # 2.5 K/mcL (1.6-8.9); Platelet Count 133 K/mcL (140-400); Red Blood Count 3.82 M/mcL (3.82-4.97); Red Cell Distribution Width 22.2 % (11.5-14.5); Segmented Neutrophils % 57.4 %; White Blood Count 4.3 K/mcL (4.3-11.1)
[2020-05-30] MEDS: *HR* Enoxaparin 40 MG/0.4 ML SYRINGE SQ SCH (05:25)
[2020-05-30 06:54] LABS: BUN/Creatinine Ratio 27 (6-26); Blood Urea Nitrogen 16 mg/dL (8-23); Calcium 8.4 mg/dL (8.6-10.3); Carbon Dioxide 30 mEq/L (23-29); Chloride 102 mEq/L (98-107); Glucose 153 mg/dL (70-105); Osmolality,Calculated 290 (280-300); Potassium 4.2 mEq/L (3.5-5.1); Sodium 138 mEq/L (136-145); eGFR For African Americans > 60 (> 60); eGFR For Non-African Americans > 60 (> 60)
[2020-05-30] MEDS: Budesonide/Formoterol 160/4.5 1 PUFF INH IH SCH ×2 (07:58→23:10)
[2020-05-30] MEDS: Insulin LISPRO 300 UNITS/3 ML VIAL SUBQ SCH ×4 (08:11→21:27)
[2020-05-30] MEDS: Dexamethasone Sodium Phos/PF 10 MG/ML VIAL IVP SCH (08:35)
[2020-05-30] MEDS: Pregabalin 75 MG CAPSULE PO SCH ×2 (08:35→21:14)
[2020-05-30] MEDS: tiZANidine 4 MG TABLET PO SCH (08:35)
[2020-05-30] MEDS: Cholecalciferol (D-3) 1,000 UNIT (25MCG) TABLET PO SCH (08:35)
[2020-05-30] MEDS: Insulin DETEMIR 100 UNIT/ML X5UNITS SUBQ SCH ×2 (08:39→21:24)
[2020-05-30 10:30] LABS: C-Reactive Protein 6 mg/L (Less than 10)
[2020-05-30 10:49] LABS: Ferritin 48 ng/mL (10-120)
[2020-05-30] MEDS: *HR* LORazepam 1 MG TABLET PO PRN ×2 (13:58→22:08)
[2020-05-30] MEDS: *HR* Acetaminophen w/Cod 300-30 mg 1 TAB TABLET PO PRN ×2 (13:58→22:08)
[2020-05-30] MEDS: Mirtazapine 15 MG TABLET PO SCH (21:14)
[2020-05-30] MEDS: Melatonin 3 MG TABLET PO PRN (22:09)
[2020-05-31] MEDS: Piperacillin/Tazobactam 3.375 GM in 0.9 % Sodium Chloride Mini Bag 100 ML IVPB SCH ×4 (01:13→23:32)
[2020-05-31] MEDS: *HR* Enoxaparin 40 MG/0.4 ML SYRINGE SQ SCH (05:32)
[2020-05-31] MEDS: Insulin LISPRO 300 UNITS/3 ML VIAL SUBQ SCH ×4 (08:11→22:05)
[2020-05-31] MEDS: Cholecalciferol (D-3) 1,000 UNIT (25MCG) TABLET PO SCH (09:13)
[2020-05-31] MEDS: tiZANidine 4 MG TABLET PO SCH (09:13)
[2020-05-31] MEDS: Pregabalin 75 MG CAPSULE PO SCH ×2 (09:13→22:02)
[2020-05-31] MEDS: Dexamethasone Sodium Phos/PF 10 MG/ML VIAL IVP SCH (09:14)
[2020-05-31] MEDS: Insulin DETEMIR 100 UNIT/ML X5UNITS SUBQ SCH ×2 (09:16→22:06)
[2020-05-31] MEDS: Budesonide/Formoterol 160/4.5 1 PUFF INH IH SCH ×2 (10:43→21:40)
[2020-05-31] MEDS: *HR* LORazepam 0.5 MG TABLET PO PRN ×2 (14:50→22:01)
[2020-05-31] MEDS: *HR* Acetaminophen w/Cod 300-30 mg 1 TAB TABLET PO PRN ×2 (15:01→22:01)
[2020-05-31] MEDS: Mirtazapine 15 MG TABLET PO SCH (22:02)
[2020-05-31] MEDS: Melatonin 3 MG TABLET PO PRN (22:02)
[2020-06-01] MEDS: *HR* Enoxaparin 40 MG/0.4 ML SYRINGE SQ SCH (05:20)
[2020-06-01] MEDS: Pregabalin 75 MG CAPSULE PO SCH ×2 (08:58→21:21)
[2020-06-01] MEDS: Piperacillin/Tazobactam 3.375 GM in 0.9 % Sodium Chloride Mini Bag 100 ML IVPB SCH (08:58)
[2020-06-01] MEDS: Insulin LISPRO 300 UNITS/3 ML VIAL SUBQ SCH ×4 (08:58→21:22)
[2020-06-01] MEDS: Insulin DETEMIR 100 UNIT/ML X5UNITS SUBQ SCH ×2 (08:58→21:21)
[2020-06-01] MEDS: tiZANidine 4 MG TABLET PO SCH (08:59)
[2020-06-01] MEDS: Cholecalciferol (D-3) 1,000 UNIT (25MCG) TABLET PO SCH (08:59)
[2020-06-01] MEDS: Budesonide/Formoterol 160/4.5 1 PUFF INH IH SCH ×2 (09:45→22:08)
[2020-06-01] MEDS: *HR* Acetaminophen w/Cod 300-30 mg 1 TAB TABLET PO PRN ×2 (15:35→23:36)
[2020-06-01] MEDS: *HR* LORazepam 0.5 MG TABLET PO PRN ×2 (15:36→23:37)
[2020-06-01] MEDS: Mirtazapine 15 MG TABLET PO SCH (21:21)
[2020-06-01] MEDS: tiZANidine 4 MG TABLET PO PRN (21:21)
[2020-06-01] MEDS: Melatonin 3 MG TABLET PO PRN (23:37)
[2020-06-02] MEDS: *HR* Enoxaparin 40 MG/0.4 ML SYRINGE SQ SCH (05:48)
[2020-06-02] MEDS: Insulin LISPRO 300 UNITS/3 ML VIAL SUBQ SCH ×4 (07:37→20:33)
[2020-06-02] MEDS: Pregabalin 75 MG CAPSULE PO SCH ×2 (07:37→20:34)
[2020-06-02] MEDS: Cholecalciferol (D-3) 1,000 UNIT (25MCG) TABLET PO SCH (07:37)
[2020-06-02] MEDS: Insulin DETEMIR 100 UNIT/ML X5UNITS SUBQ SCH ×2 (08:49→20:33)
[2020-06-02] MEDS: Budesonide/Formoterol 160/4.5 1 PUFF INH IH SCH ×2 (09:56→22:08)
[2020-06-02] MEDS: *HR* Acetaminophen w/Cod 300-30 mg 1 TAB TABLET PO PRN (10:51)
[2020-06-02] MEDS: *HR* LORazepam 0.5 MG TABLET PO PRN (18:48)
[2020-06-02] MEDS: Acetaminophen 325 MG TABLET PO PRN (18:48)
[2020-06-02] MEDS: Mirtazapine 15 MG TABLET PO SCH (20:33)
[2020-06-02] MEDS: Melatonin 3 MG TABLET PO PRN (20:36)
[2020-06-02] MEDS: tiZANidine 4 MG TABLET PO PRN (20:36)
[2020-06-03] MEDS: *HR* Enoxaparin 40 MG/0.4 ML SYRINGE SQ SCH (05:29)
[2020-06-03] MEDS: Budesonide/Formoterol 160/4.5 1 PUFF INH IH SCH ×2 (07:34→22:05)
[2020-06-03] MEDS: Insulin LISPRO 300 UNITS/3 ML VIAL SUBQ SCH ×4 (07:53→20:16)
[2020-06-03] MEDS: Cholecalciferol (D-3) 1,000 UNIT (25MCG) TABLET PO SCH (07:53)
[2020-06-03] MEDS: Pregabalin 75 MG CAPSULE PO SCH ×2 (08:57→20:15)
[2020-06-03] MEDS: Insulin DETEMIR 100 UNIT/ML X5UNITS SUBQ SCH ×2 (08:57→20:15)
[2020-06-03] MEDS: *HR* LORazepam 0.5 MG TABLET PO PRN ×2 (10:21→20:14)
[2020-06-03] MEDS: *HR* Acetaminophen w/Cod 300-30 mg 1 TAB TABLET PO PRN ×2 (10:21→18:35)
[2020-06-03] MEDS: Melatonin 3 MG TABLET PO PRN (20:15)
[2020-06-03] MEDS: Mirtazapine 15 MG TABLET PO SCH (20:15)
[2020-06-03] MEDS: tiZANidine 4 MG TABLET PO PRN (20:15)
[2020-06-03] MEDS: Saline Nasal Spray 44 ML BOTTLE NS PRN (20:28)
[2020-06-04] MEDS: *HR* Enoxaparin 40 MG/0.4 ML SYRINGE SQ SCH (06:34)
[2020-06-04] MEDS: Insulin LISPRO 300 UNITS/3 ML VIAL SUBQ SCH ×4 (08:28→20:11)
[2020-06-04] MEDS: Insulin DETEMIR 100 UNIT/ML X5UNITS SUBQ SCH ×2 (09:18→20:11)
[2020-06-04] MEDS: Cholecalciferol (D-3) 1,000 UNIT (25MCG) TABLET PO SCH (09:18)
[2020-06-04] MEDS: Pregabalin 75 MG CAPSULE PO SCH ×2 (09:18→19:44)
[2020-06-04] MEDS: Budesonide/Formoterol 160/4.5 1 PUFF INH IH SCH ×2 (09:41→21:41)
[2020-06-04] MEDS: *HR* Acetaminophen w/Cod 300-30 mg 1 TAB TABLET PO PRN ×2 (12:37→20:18)
[2020-06-04] MEDS: *HR* LORazepam 0.5 MG TABLET PO PRN ×2 (12:37→20:18)
[2020-06-04] MEDS: tiZANidine 4 MG TABLET PO PRN (19:44)
[2020-06-04] MEDS: Melatonin 3 MG TABLET PO PRN (19:45)
[2020-06-04] MEDS: Saline Nasal Spray 44 ML BOTTLE NS PRN (19:45)
[2020-06-04] MEDS: Mirtazapine 15 MG TABLET PO SCH (19:45)
[2020-06-05] MEDS: *HR* Enoxaparin 40 MG/0.4 ML SYRINGE SQ SCH (06:43)
[2020-06-05] MEDS: Pregabalin 75 MG CAPSULE PO SCH ×2 (07:45→21:31)
[2020-06-05] MEDS: Cholecalciferol (D-3) 1,000 UNIT (25MCG) TABLET PO SCH (07:45)
[2020-06-05] MEDS: Insulin LISPRO 300 UNITS/3 ML VIAL SUBQ SCH ×4 (07:46→21:33)
[2020-06-05] MEDS: Insulin DETEMIR 100 UNIT/ML X5UNITS SUBQ SCH ×2 (09:21→21:33)
[2020-06-05] MEDS: Budesonide/Formoterol 160/4.5 1 PUFF INH IH SCH ×2 (10:04→20:41)
[2020-06-05] MEDS: *HR* Acetaminophen w/Cod 300-30 mg 1 TAB TABLET PO PRN ×2 (10:50→21:32)
[2020-06-05] MEDS: *HR* LORazepam 0.5 MG TABLET PO PRN ×2 (10:50→21:31)
[2020-06-05] MEDS: Mirtazapine 15 MG TABLET PO SCH (21:31)
[2020-06-05] MEDS: tiZANidine 4 MG TABLET PO PRN (21:31)
[2020-06-05] MEDS: Melatonin 3 MG TABLET PO PRN (21:31)
[2020-06-06] MEDS: *HR* Enoxaparin 40 MG/0.4 ML SYRINGE SQ SCH (06:28)
[2020-06-06] MEDS: Cholecalciferol (D-3) 1,000 UNIT (25MCG) TABLET PO SCH (07:40)
[2020-06-06] MEDS: Pregabalin 75 MG CAPSULE PO SCH ×2 (07:40→22:25)
[2020-06-06] MEDS: Insulin LISPRO 300 UNITS/3 ML VIAL SUBQ SCH ×4 (07:41→22:27)
[2020-06-06] MEDS: Insulin DETEMIR 100 UNIT/ML X5UNITS SUBQ SCH ×2 (08:40→22:26)
[2020-06-06] MEDS: Budesonide/Formoterol 160/4.5 1 PUFF INH IH SCH ×2 (10:14→22:50)
[2020-06-06] MEDS: *HR* Acetaminophen w/Cod 300-30 mg 1 TAB TABLET PO PRN ×2 (12:13→22:25)
[2020-06-06] MEDS: *HR* LORazepam 0.5 MG TABLET PO PRN ×2 (12:13→22:25)
[2020-06-06] MEDS: tiZANidine 4 MG TABLET PO PRN (16:33)
[2020-06-06] MEDS: Mirtazapine 15 MG TABLET PO SCH (22:25)
[2020-06-06] MEDS: Melatonin 3 MG TABLET PO PRN (22:26)
[2020-06-07] MEDS: *HR* Enoxaparin 40 MG/0.4 ML SYRINGE SQ SCH (06:42)
[2020-06-07] MEDS: Cholecalciferol (D-3) 1,000 UNIT (25MCG) TABLET PO SCH (08:09)
[2020-06-07] MEDS: Insulin LISPRO 300 UNITS/3 ML VIAL SUBQ SCH ×4 (08:12→21:30)
[2020-06-07] MEDS: Pregabalin 75 MG CAPSULE PO SCH ×2 (08:14→21:29)
[2020-06-07] MEDS: Insulin DETEMIR 100 UNIT/ML X5UNITS SUBQ SCH ×2 (08:23→21:31)
[2020-06-07] MEDS: *HR* Acetaminophen w/Cod 300-30 mg 1 TAB TABLET PO PRN ×2 (09:36→21:29)
[2020-06-07] MEDS: *HR* LORazepam 0.5 MG TABLET PO PRN ×2 (09:36→21:29)
[2020-06-07] MEDS: Budesonide/Formoterol 160/4.5 1 PUFF INH IH SCH ×2 (10:09→22:04)
[2020-06-07] MEDS: Melatonin 3 MG TABLET PO PRN (21:29)
[2020-06-07] MEDS: tiZANidine 4 MG TABLET PO PRN (21:29)
[2020-06-07] MEDS: Mirtazapine 15 MG TABLET PO SCH (21:29)
[2020-06-08] MEDS: *HR* Enoxaparin 40 MG/0.4 ML SYRINGE SQ SCH (06:01)
[2020-06-08 06:14] LABS: Hematocrit 33.1 % (35.3-44.9); Hemoglobin 9.9 g/dL (11.5-15.4); Mean Corpuscular HGB Conc 29.9 g/dL (31.6-35.5); Mean Corpuscular Hemoglobin 25.3 pg (28.0-33.3); Mean Corpuscular Volume 84.4 fL (83.0-100.0); Mean Platelet Volume 11.1 fL (9.4-12.4); Platelet Count 112 K/mcL (140-400); Red Blood Count 3.92 M/mcL (3.82-4.97); Red Cell Distribution Width 24.8 % (11.5-14.5); White Blood Count 4.2 K/mcL (4.3-11.1)
[2020-06-08 06:37] LABS: BUN/Creatinine Ratio 31 (6-26); Blood Urea Nitrogen 18 mg/dL (8-23); Calcium 8.7 mg/dL (8.6-10.3); Carbon Dioxide 30 mEq/L (23-29); Chloride 103 mEq/L (98-107); Glucose 126 mg/dL (70-105); Magnesium 1.7 mg/dL (1.6-2.6); Osmolality,Calculated 291 (280-300); Potassium 4.1 mEq/L (3.5-5.1); Sodium 139 mEq/L (136-145); eGFR For African Americans > 60 (> 60); eGFR For Non-African Americans > 60 (> 60)
[2020-06-08] MEDS: Insulin LISPRO 300 UNITS/3 ML VIAL SUBQ SCH ×4 (08:12→21:46)
[2020-06-08] MEDS: Budesonide/Formoterol 160/4.5 1 PUFF INH IH SCH ×2 (08:28→20:58)
[2020-06-08] MEDS: Insulin DETEMIR 100 UNIT/ML X5UNITS SUBQ SCH ×2 (10:48→21:45)
[2020-06-08] MEDS: Pregabalin 75 MG CAPSULE PO SCH ×2 (10:49→21:45)
[2020-06-08] MEDS: Cholecalciferol (D-3) 1,000 UNIT (25MCG) TABLET PO SCH (10:49)
[2020-06-08] MEDS: *HR* Acetaminophen w/Cod 300-30 mg 1 TAB TABLET PO PRN ×2 (10:56→21:44)
[2020-06-08] MEDS: *HR* LORazepam 0.5 MG TABLET PO PRN ×2 (10:56→21:45)
[2020-06-08] MEDS: Albuterol 2.5 MG/3 ML NEBULIZER IH PRN (11:00)
[2020-06-08] MEDS: Melatonin 3 MG TABLET PO PRN (21:45)
[2020-06-08] MEDS: Mirtazapine 15 MG TABLET PO SCH (21:45)
[2020-06-08] MEDS: tiZANidine 4 MG TABLET PO PRN (21:45)
[2020-06-09] MEDS: *HR* Enoxaparin 40 MG/0.4 ML SYRINGE SQ SCH (06:25)
[2020-06-09] MEDS: Pregabalin 75 MG CAPSULE PO SCH ×2 (08:39→20:53)
[2020-06-09] MEDS: Cholecalciferol (D-3) 1,000 UNIT (25MCG) TABLET PO SCH (08:39)
[2020-06-09] MEDS: Insulin LISPRO 300 UNITS/3 ML VIAL SUBQ SCH ×4 (08:39→20:53)
[2020-06-09] MEDS: Insulin DETEMIR 100 UNIT/ML X5UNITS SUBQ SCH ×2 (08:39→20:53)
[2020-06-09] MEDS: *HR* LORazepam 0.5 MG TABLET PO PRN (08:44)
[2020-06-09] MEDS: *HR* Acetaminophen w/Cod 300-30 mg 1 TAB TABLET PO PRN ×2 (08:44→20:52)
[2020-06-09] MEDS: Budesonide/Formoterol 160/4.5 1 PUFF INH IH SCH ×2 (09:11→21:15)
[2020-06-09] MEDS: Mirtazapine 15 MG TABLET PO SCH (20:52)
[2020-06-09] MEDS: tiZANidine 4 MG TABLET PO PRN (20:52)
[2020-06-09] MEDS: Melatonin 3 MG TABLET PO PRN (20:53)
[2020-06-10] MEDS: *HR* Enoxaparin 40 MG/0.4 ML SYRINGE SQ SCH (05:49)
[2020-06-10 07:47] VITALS: BP 115/71
[2020-06-10] MEDS: Cholecalciferol (D-3) 1,000 UNIT (25MCG) TABLET PO SCH (08:47)
[2020-06-10] MEDS: Pregabalin 75 MG CAPSULE PO SCH (08:49)
[2020-06-10] MEDS: Insulin LISPRO 300 UNITS/3 ML VIAL SUBQ SCH ×2 (08:49→12:13)
[2020-06-10] MEDS: Insulin DETEMIR 100 UNIT/ML X5UNITS SUBQ SCH (08:50)
[2020-06-10] MEDS: Budesonide/Formoterol 160/4.5 1 PUFF INH IH SCH (10:13)
== END 2020-06-10 15:25 | disposition home health service (06) | DRG 177 ==
LOC: INPPIK 05-19 18:59
PROVIDERS: ADMIT Family Medicine; ATTEND Family Medicine